=== PATIENT | female | born 1970 | race Caucasian/White ===

== ENCOUNTER → 2018-12-06 | Outpatient (CLI) | payer OTHER ==
--- NOTE | 2018-12-06 15:43 | Diagnostic Imaging Report ---
INDICATION: Back pain. COMPARISON: None FINDINGS: Frontal, oblique, and lateral views of the lumbar spine were obtained. Alignment and vertebral heights are maintained. There is no fracture or destructive process. Mild multilevel degenerative disease is noted in the lumbar spine, greatest at the L5-S1 level. Limited views of the abdomen demonstrate nonobstructive bowel gas pattern. IMPRESSION: 1. No acute fracture or dislocation of the lumbar spine. 2. Mild multilevel degenerative changes. Dictated by: Dictated on workstation # [id number]
--- NOTE | 2018-12-06 15:43 | Diagnostic Imaging Report ---
INDICATION: SHORTNESS OF BREATH COMPARISON: None. FINDINGS: Frontal and lateral views of the chest demonstrate normal heart size and pulmonary vascularity. The lungs are clear. There are no signs of infiltrate, pleural effusions or pneumothoraces. The visualized osseous structures show no acute abnormalities. IMPRESSION: 1. No acute process. No signs of infiltrates, effusions or pneumothoraces. Dictated by: Dictated on workstation # [id number]
== END ==
LOC: RAD FS 15:12
PROVIDERS: ATTEND Nurse Practitioner Family
DX: M47.816 Spondylosis without myelopathy or radiculopathy, lumbar region (principal); R06.02 Shortness of breath
CPT/HCPCS: 71046; 72110

== ENCOUNTER 2020-02-10 00:06 | Emergency (ER) | payer OTHER ==
[~2020-02-10] VITALS: Ht 160 cm; Wt 79.3 kg
--- NOTE | 2020-02-10 00:21 | ED Lower Extremity ---
General Stated Complaint: RIGHT ANKLE PAIN Source: patient Exam Limitations: no limitations History of Present Illness Date Seen by Provider: Feb 10, 2020 Time Seen by Provider: 00:18 Initial Comments 49-year-old female who states she was stepping on a cardboard box especially when she fell off the box. She felt a pop in her right ankle. Patient complains of pain and swelling in the right ankle joint. She has difficulty bearing weight and movement. She has no other injuries. Allergies and Home Medications Allergies Coded Allergies: No Known Drug Allergies (Unverified , 02/10/20) Patient Home Medication List Home Medication List Reviewed: Yes Review of Systems Constitutional: no symptoms reported EENTM: no symptoms reported Respiratory: no symptoms reported Cardiovascular: no symptoms reported Gastrointestinal: no symptoms reported Genitourinary: no symptoms reported Musculoskeletal: see HPI Skin: no symptoms reported Psychiatric/Neurological: No Symptoms Reported Past Ofnipvd-Qaxali-Zfosoy Hx Past Med/Social Hx: Reviewed Nursing Past Med/Soc Hx Patient Social History Recent Foreign Travel: No Contact w/Someone Who Travel: No Physical Exam Vital Signs Vital Signs - First Documented 02/10/20 00:10 Temp 36.7 Pulse 82 Resp 14 B/P (MAP) 148/93 (111) Pulse Ox 99 O2 Delivery Room Air Capillary Refill : Height, Weight, BMI Height: '" Weight: lbs. oz. kg; BMI Method: General Appearance: mild distress Cardiovascular: normal peripheral pulses, regular rate, rhythm Respiratory: lungs clear, normal breath sounds Gastrointestinal: non tender, soft Hips: bilateral hip non-tender Legs: bilateral leg non-tender Knees: bilateral knee non-tender Ankles: right ankle limited range of motion, right ankle pain, right ankle soft tissue tenderness, right ankle swelling Feet: bilateral foot non-tender Progress/Results/Core Measures Results/Orders My Orders Orders - LIMA DE LA CRUZ DO Ankle 3 View Right (02/10/20 00:15) Ortho Glass (02/10/20 00:29) Crutches (02/10/20 00:29) Rx-Hydrocodone/Apap 5-325 Mg (Rx-Vicodin (02/10/20 00:30) Hydrocodone/Apap 5/325 Tablet (Lortab 5 (02/10/20 00:30) Vital Signs/I&O 02/10/20 00:10 Temp 36.7 Pulse 82 Resp 14 B/P (MAP) 148/93 (111) Pulse Ox 99 O2 Delivery Room Air Diagnostic Imaging Diagonstic Imaging: Xray Plain Films/CT/US/NM/MRI: ankle Comments Trimalleolar fracture Reviewed: Reviewed by Me Departure Impression Primary Impression: Trimalleolar fracture of right ankle Qualified Codes: S82.851A - Displaced trimalleolar fracture of right lower leg, initial encounter for closed fracture Disposition: HOME, SELF-CARE Condition: Stable Departure-Patient Inst. Referrals: [facility] (PCP) Primary Care Physician PAMELLA COTTON APRN (Family) Primary Care Physician [facility] - [facility] Patient Instructions: Ankle Fracture, How to Use Crutches Add. Discharge Instructions: Keep leg elevated when sitting Ice to affected area Do not bear any weight on your right leg Call orthopedic surgeon at 8 AM to schedule a follow-up tomorrow if available Work/School Note: Work Release Form Date Seen in the Emergency Department: Feb 10, 2020 Restrictions: Need Release from Doctor LIMA DE LA CRUZ DO Feb 10, 2020 00:21
[2020-02-10] MEDS ORDERED: HYDROcodone/APAP 5 MG/325 MG (LORTAB) TAB PO ONE (00:30)
[2020-02-10] MEDS ORDERED: RX-HYDROCODONE/APAP 5/325 MG #4 TAB PK PO PRN (00:30)
[2020-02-10 01:24] VITALS: BP 148/93
--- NOTE | 2020-02-10 06:04 | Diagnostic Imaging Report ---
Right ankle at 1220 hours. INDICATION: Injury. 3 views were obtained. There are no prior studies available for comparison. FINDINGS: There is a slightly comminuted displaced fracture of the distal fibula. The distal fracture fragment is displaced medially by half the width of the fibular shaft. Furthermore, there is also a slightly displaced and slightly comminuted fracture extending obliquely through the posterior malleolus of the distal tibia. There appears to be a nondisplaced fracture of the medial malleolus as well. The ankle mortise is not widened and the talar dome is smooth. There is soft tissue edema about the ankle joint. IMPRESSION: There is a trimalleolar fracture of the ankle. If further imaging is desired, then CT would be recommended. Dictated by: Dictated on workstation # [id number]
== END 2020-02-10 01:24 | disposition home or self-care (01) ==
LOC: EDUNIT# 00:06 → ER FS 00:09
DX: S82.851A Displaced trimalleolar fracture of right lower leg, initial encounter for closed fracture (principal); W08.XXXA Fall from other furniture, initial encounter
CPT/HCPCS: 29515; 73610

== ENCOUNTER → 2022-11-10 | Outpatient (CLI) | payer OTHER ==
--- NOTE | 2022-11-10 16:41 | Diagnostic Imaging Report ---
PROCEDURE: MRI lumbar spine. TECHNIQUE: Multiplanar, multisequence MRI of the lumbar spine was performed without contrast. INDICATION: Low back pain FINDINGS: The alignment of the lumbar spine is normal. The vertebral body heights are well-maintained. No spondylolysis or spondylolisthesis. No fractures are identified. Conus medullaris is seen at L1 and is normal in appearance. At T12-L1 there is no spinal or neuroforaminal encroachment. At L1-L2 there is no spinal stenosis. There is minimal neuroforaminal encroachment. At L2-L3 there is some facet disease and thickening of the ligamentum flavum. Very minimal neuroforaminal encroachment. At L3-L4 there is annular bulging and facet disease with thickening of the ligamentum flavum. There is mild to moderate spinal stenosis with slight encroachment from left lateral recess. Mild bilateral neuroforaminal encroachment. At L4-L5 there is some annular bulging and facet disease. Some effacement of the ventral thecal sac and some moderate left encroachment on the left lateral recess. There is mild to moderate bilateral neural foraminal encroachment. There are Modic changes at L5-S1. There is some annular bulging. There is effacement of ventral thecal sac. There is encroachment on the lateral recesses bilaterally left greater than right. There is moderate bilateral neural foraminal encroachment. Aorta is nonaneurysmal. There are small left renal cysts. IMPRESSION: Lumbar spondylosis and degenerative disc disease, as described Small left renal cysts. Dictated by: Dictated on workstation # [id number]
== END ==
LOC: RAD 14:15
PROVIDERS: ATTEND Nurse Practitioner Family
DX: M47.816 Spondylosis without myelopathy or radiculopathy, lumbar region (principal); N28.1 Cyst of kidney, acquired; M51.26 Other intervertebral disc displacement, lumbar region; M48.061 Spinal stenosis, lumbar region without neurogenic claudication; M51.36 Other intervertebral disc degeneration, lumbar region
CPT/HCPCS: 72148

== ENCOUNTER → 2023-01-22 | Outpatient (CLI) | payer OTHER ==
--- NOTE | 2023-01-22 13:05 | Diagnostic Imaging Report ---
PROCEDURE: MR imaging cervical spine without contrast. TECHNIQUE: Multiplanar, multisequence MR imaging of the cervical spine was performed without contrast. INDICATION: Neck pain, spine pain, abnormal reflex. COMPARISON: None FINDINGS: Alignment of the cervical spine appears normal with no spondylolisthesis. Vertebral body heights are preserved. There is mild disc height loss at C3-C4, C4-C5, C5-C6 and C6-C7. Vertebral body heights are preserved. There is mild facet arthropathy in the left lower cervical spine. The cord demonstrates no focal lesions. Surrounding soft tissues demonstrate no acute abnormalities. C2-C3: No significant disc bulge. No spinal canal or foraminal stenosis. C3-C4: Posterior disc osteophyte complex. Mild right facet arthropathy. Mild spinal canal narrowing. Moderate to severe right and moderate left foraminal stenosis. C4-C5: Posterior disc osteophyte complex. Mild spinal canal narrowing. Moderate left foraminal stenosis, mild right foraminal narrowing. C5-C6: Posterior disc osteophyte complex. Left facet arthropathy. Mild spinal canal narrowing. Mild left foraminal narrowing. C6-C7: Posterior disc osteophyte complex. No spinal canal or foraminal stenosis. C7-T1: No significant disc bulge. No spinal canal or foraminal stenosis. IMPRESSION: 1. Mild to moderate degenerative changes in the cervical spine. No significant spinal canal stenosis or focal cord lesions. 2. Multilevel foraminal stenosis, most pronounced at C3-C4 on the right. Dictated by: Dictated on workstation # [id number]
== END ==
LOC: RAD 09:18
DX: M47.812 Spondylosis without myelopathy or radiculopathy, cervical region (principal); M48.02 Spinal stenosis, cervical region; R29.2 Abnormal reflex
CPT/HCPCS: 72141